=== PATIENT | male | born 1980 | race Caucasian/White ===

== ENCOUNTER 2023-09-03 09:03 | Outpatient (OUT) | payer BC, SELFPAY ==
[2023-09-03 10:26] LABS: Alanine Aminotransferase 31 U/L (16-63); Albumin Globulin Ratio 0.9; Albumin Level 3.7 g/dL (3.4-5.0); Alkaline Phosphatase 97 U/L (46-116); Anion Gap 13.4; Aspartate Amino Transferase 20 U/L (15-37); BUN Creatinine Ratio 13.6; Bilirubin Total 0.6 mg/dL (0.2-1.0); Calcium 9.4 mg/dL (8.5-10.1); Carbon Dioxide 27.3 mmol/L (21.0-32.0); Chloride 104 mmol/L (98-107); Estimated GFR (African America >60 (>=60); Estimated GFR (Non-African Ame >60 (>=60); Globulin 4.3 g/dL; Glucose 96 mg/dL (74-106); Potassium 3.7 mmol/L (3.5-5.1); Sodium 141 mmol/L (136-145)
[2023-09-04 14:07] LABS: Insulin 32.2 uIU/mL (2.6-24.9)
[2023-09-09 18:07] LABS: Free Testosterone(Direct) 6.6 pg/mL (6.8-21.5); Testosterone 139 ng/dL (264-916)
== END 2023-09-03 09:04 | disposition home or self-care (01) ==
PROVIDERS: PCP Nurse Practitioner Family; Visit Provider Nurse Practitioner Family
DX: R63.5 Abnormal weight gain (principal)
CPT/HCPCS: 36415; 80053; 82533; 83525; 84402; 84403

== ENCOUNTER 2024-02-17 14:22 | Emergency (ER) | payer BC, SELFPAY ==
[2024-02-17 14:28] VITALS: BP 143/106; PULSE 84; TEMP 36.7; O2SAT 95
--- OUTSIDE RECORDS SUMMARY | 2024-02-17 14:33 | XMS_ITS | CCD ---
Author Organization [facility] Care Team Providers Care Distribution Driver Name Role Phone DEVORAH STRICKLAND Primary Care Unavailable DR MOSHE RIOS V Consulting Unavailable WAYNE GARG Admitting Unavailable WAYNE GARG Attending Unavailable WAYNE GARG Consulting Unavailable Devorah Strickland Unavailable Princess Allen Unavailable DEVORAH STRICKLAND Primary Care Physician NOEMY STRICKLAND Primary Care Unavail able NOEMY STRICKLAND Referring Unavail Wesley Henriquez Admitting Unavaila Wesley Morrison Attending Maxwella NOEMY Todd Primary Care Unavail able NOEMY STRICKLAND Attending Unavail able NOEMY STRICKLAND Referring Unavail able MARCO A, NOEMY Cui Admitting Unavail able MARCO A, NOEMY Cui Primary Care Unavail able MD Dao Rosa Consulting Unavailable Wesley Smith Admitting Unavaila Wesley Morrison Attending Maxwella Wesley Morrison Referring Unavaila Dao Fedler Consulting Unavailable Dao Rosa Consulting Unavailable Allergies Allergy Classification Reported Allergen(s) Allergy Type Date of Onset Reaction(s) Facility (14 sources) Azithromycin Drug Allergy [facility] sones Other Medications Current Medications Medication Drug Class(es) Dates Sig (Normalized) Sig (Original) [id number] 200 actuat albuterol 0.09 mg/actuat metered dose inhaler (1 source) beta2-Adrenergic Agonist Start: 02-09-2023 take 2 puff(s) by inhalation four times daily as needed Albuterol Sulfate HFA 108 (90 Base) MCG/ACT 2 puffs Inhalation 4 times a day prn Feb, Active ALPRAZolam 0.25 mg oral tablet (6 sources) Benzodiazepine Start: 05-10-2021 Xanax 0.25 MG 1/2 to 1 By Mouth Twice a day for 15 day(s) May, Active Start: 03-23-2021 Start: 01-27-2021 Xanax 0.25 MG 1/2 to 1 By Mouth Twice a day for 15 day(s) Jan, Active amoxicillin 250 mg oral capsule (6 sources) Penicillin-class Antibacterial Start: 06-26-2023 take 250 mg by mouth three times daily Amoxicillin Active 250 MG PO Three times daily 26 11June 26, 2023 12:00am Start: 01-31-2021 take 1 tablet by amadou th every eight hours Amoxicillin 875 MG 1 tablet Orally every 8 hrs for 10 day(s) Jan, Active benzonatate 200 mg oral capsule (1 source) Non-narcotic Antitussive Start: 02-09-2023 take 1 capsule by mouth every eight hours Benzonatate 200 MG 1 capsule Orally Three times a day Feb, Active clonazePAM 0.5 mg oral tablet (12 sources) Benzodiazepine Start: 06-26-2023 Clonazepam Active MG PO June 26, 2023 12:00am Start: 05-30-2023 ClonazePAM 0.5 mg Tab Refills(s) 0 Start Date: 05/30/23 Status: Ordered Start: 05-13-2022 take 1 tablet by amadou th every twelve hours KlonoPIN 0.5 MG 1 tablet Orally twice a day for 20 day(s) May, Active Start: 02-22-2022 take 1 tablet by amadou th every twelve hours KlonoPIN 0.5 MG 1 tablet Orally twice a day for 20 day(s) Feb, Active Start: 12-07-2021 take 1 tablet by amadou th every twelve hours KlonoPIN 0.5 MG 1 tablet Orally twice a day for 20 day(s) Dec, Active Start: 10-12-2021 take 1 tablet by amadou th every twelve hours KlonoPIN 0.5 MG 1 tablet Orally twice a day for 15 day(s) Oct, Active Start: 08-13-2021 take 1 tablet by amadou th every twelve hours KlonoPIN 0.5 MG 1 tablet Orally bid for 15 day(s) Aug, Active Start: 06-13-2021 take 1 tablet by amadou th every twelve hours KlonoPIN 0.5 MG 1 tablet Orally bid for 15 day(s) Jun, Active Start: 06-09-2021 take 1 tablet by amadou th every twelve hours KlonoPIN 0.5 MG 1 tablet Orally bid for 3 days Jun, Active doxycycline hyclate 100 mg oral tablet (1 source) Tetracycline-class Drug Start: 02-09-2023 take 1 tablet by mouth every twelve hours Doxycycline Hyclate 100 MG 1 tablet Orally Twice a day for 10 day(s) Feb, Active fluticasone propionate 0.05 mg/actuat metered dose nasal spray (1 source) Corticosteroid Start: 02-09-2023 take 2 spray(s) nasal route once daily Fluticasone Propionate 50 MCG/ACT 2 sprays Nasally Once a day for 14 day(s) Feb, Active Metoprolol (17 sources) beta-Adrenergic Desiree Start: 06-26-2023 Metoprolol Succinate Active MG PO June 26, 2023 12:00am Start: 05-30-2023 metoprolol 50 mg ER Tab Refills(s) 0 Start Date: 05/30/23 Status: Ordered Start: 07-08-2020 take 1 tablet by amadou th every twenty-four hours Toprol XL 50 MG 1 tablet Orally Once a day for 90 day(s) Jul, Active pantoprazole 20 mg delayed release oral tablet (2 sources) Proton Pump Inhibitor Start: 07-01-[address] Tab Refills(s) 0 Start Date: 07/01/23 Status: Ordered QUEtiapine 25 mg oral tablet (1 source) Atypical Antipsychotic Start: 06-26-2023 Quetiap ine Active MG PO June 26, 2023 12:00am Completed/Discontinued Medications Medication Drug Class(es) Dates Sig (Normalized) Sig (Original) escitalopram 20 mg oral tablet (14 sources) Serotonin Reuptake Inhibitor Start: 05-23-2020 take 1 tablet by mouth every twenty-four hours Lexapro 20 MG 1 tablet Orally Once a day for 30 day(s) May, Not-Taking hydrOXYzine hydrochloride 10 mg oral tablet (14 sources) Antihistamine take 1 tablet by mouth three times daily as needed hydrOXYzine HCl 10 MG 1 tablet as needed Orally tid prn for 30 days Not-Taking lisinopril 20 mg oral tablet (14 sources) Angiotensin Converting Enzyme Inhibitor take 1 tablet by mouth every twenty-four hours Lisinopril 20 MG 1 tablet Orally Once a day for 90 day(s) Not-Taking Problems Active Problems Problem Classification Problem Date Documented Da te Episodic/Chronic Anxiety disorders (20 sources) Generalized anxiety disorder; Translations: [Generalized anxiety disorder] Onset: 01-27-2021 Resolved: 12-07-2021 Chronic Chronic obstructive pulmonary disease and bronchiectasis (1 source) Bronchitis, not specified as acute or chronic Episodic Essential hypertension (20 sources) Essential hypertension; Translations: [Essential (primary) hypertension] Onset: 01-27-2021 Resolved: 06-09-2021 Chronic Immunizations and screening for infectious disease (2 sources) Contact with and (suspected) exposure to other viral communicable diseases; Translations: [Contact with or exposure to other viral diseases] Onset: 01-31-2021 Resolved: 01-31-2021 Episodic Malaise and fatigue (15 sources) Fatigue; Translations: [Chronic fatigue, unspecified] Onset: 01-27-2021 Resolved: 01-27-2021 Chronic Other nutritional; endocrine; and metabolic disorders (2 sources) Obese 05-30-2023 Chronic Other upper respiratory infections (4 sources) Acute sinusitis, unspecified; Translations: [Viral upper respiratory tract infection] Episodic Otitis media and related conditions (3 sources) Otitis media, unspecified, bilateral; Translations: [Acute right otitis media] Onset: 01-31-2021 Resolved: 01-31-2021 Episodic Past or Other Problems Problem Classification Problem Date Documented Da te Episodic/Chronic Abdominal pain (3 sources) Left lower quadrant pain; Translations: [LEFT LOWER QUADRANT PAIN] Onset: 05-20-2021 Episodic Calculus of urinary tract (1 source) Calculus of kidney; Translations: [CALCULUS OF KIDNEY] Onset: 05-22-2021 Episodic Results Test Name Value Interpretation Reference Range Facility Heart and Vascular Office/Cl inic Noteon 07-24-2023 Heart and Vascular Office/Clinic Note Chief Complaint here to establish care History of Present Illness The patient presents for evaluation of elevated resting heart rate. An adult female accompanies him. The patient reports having an elevated resting heart rate and hypertension, which he takes a beta-desiree for. He also has panic disorder that elevates both his blood pressure and heart rate. He right now feels like a 6 out of 10. He always has chest discomfort that felt like a reverse hiccup. But once a year, he would have episodes of discomfort that would last 5 to 6 hours for 4 to 5 days. He experienced it again a couple of months ago when he noticed that his heart skipped a bit and stopped during the 3rd and 4th day while he was in bed trying to sleep. On the day of his appointment with his primary care physician, his symptoms stopped and did not appear again for 1 week. He got sick for a week. He recently got over COVID-19. His sustainability officer is concerned about the Ron protocol since he has high anxiety that it might make it inaccurate. There is also a possibility that he will not do the test due to anxiety and he does not follow through with caring for himself. His sustainability officer inquired if a [employer] monitor would be an option. He can walk on a treadmill but has not tried one. He has gained a lot of weight and he easily gets tired. He had an ER visit because his heart rate was 140 bpm. He once had a heart rate of 148 bpm when he had forgotten to take his beta-desiree. His mother has a cardiac history. He has a history of short run SVT. Review of Systems Constitutional: no fever, no sweats, no weakness Skin: no rash, no lesions, no bruising/petechiae ENMT: no sore throat, no congestion, no hoarseness Respiratory: no shortness of breath, no cough, no orthopnea, no wheezing Cardiovascular: no chest pain, no palpitations, no edema Gastrointestinal: no nausea, no vomiting, no diarrhea, no GI bleeding Genitourinary: no anuria/oliguria no hematuria Musculoskeletal: no back pain, no trauma Neurologic: no headache, no dizziness, no numbness, no weakness Psychiatric: no sleeping problems, no irritability, no anxiety/depression. Heme/Lymph: no bleeding tendency, no bruising tendency Allergy/Immunologic: no recurrent infections, no impaired immunity Additional ROS info: Except as noted in the above Review of Systems and in the History of Present Illness all other systems have been reviewed and are negative or noncontributory Physical Exam Vitals & Measurements HR: 90(Peripheral) BP: 140/88 SpO2: 95% HT: 71 in HT: 180 cm WT: 132.1 kg WT: 290.62 lb BMI: 40.77 General: alert, no acute distress Skin: warm, dry intact Head: atraumatic, normocephalic Neck: trachea midline, no JVD, no bruit Eye: normal conjunctiva, sclera clear ENMT: oral mucosa moist Cardiovascular: regular rate and rhythm, no murmur, normal peripheral perfusion Respiratory: lungs CTA, respirations non labored Chest wall: no deformity. Gastrointestinal: soft, non-distended, no tenderness, no guarding. Back: no tenderness, normal ROM, normal alignment. Extremities: no edema, no deformity, no trauma Neurological: oriented x 4, LOC appropriate for age, sensation equal & normal bilaterally, speech normal Psychiatric: cooperative, affect appropriate for age, normal judgement, normal psychiatric thoughts. Assessment/Plan 1. Chest pain (R07.9: Chest pain, unspecified) Neetu Willett is a male with chest discomfort, hypertension, elevated resting heart rate and a history of short run of SVT. His event monitor looks good. I suspect that what he detected were PVCs. I educated the patient regarding his heart rhythm, medication, and test options for his cardiac health concerns. They are fine to do the [employer] monitor. I encourage him to continue taking his beta-desiree. I will order an echocardiogram. 2. Obesity (E66.9: Obesity, unspecified) Diet and exercise as tolerated is recommended to promote weight loss and improve cardiovascular wellness. Follow-up The patient will follow up in a couple of months. Portions of this record may have been created with voice recognition artificial intelligence software, specifically Skigit, [employer]ork and or [employer]. Substitutions may have occurred due to the inherent limitations of voice recognition and artificial intelligence software. ATTESTATION: Documentation services were performed after patient or guardian consented to allow Number 100 to record this visit. APOLOL guest experience specialist and provider reviewed before signing. APOLLO: Phoebe January Oseo. Follow-up No qualifying data available Problem List/Past Medical History Ongoing No qualifying data Historical Anxiety HTN - Hypertension Obese Medications ClonazePAM 0.5 mg Tab metoprolol 50 mg ER Tab Pantoprazole [address] Tab Allergies No Known Allergies Social History Tobacco Never (less than 100 in lifetime) Tobacco Use:. Smokeless tobacco (more content not included)... Normal [facility] Comment on above: Result Comment: Elec tronically Signed By: Wesley Smith MD\.br\Date and Time Signed: 07/24/23 11:05 EDT\.br\Electronically Co-Signed By: Maria Eugenia Lazo\.br\Date and Time Co-Signed: 07/01/23 17:00 EST Electrocardiogram - 12 leado n 07-04-2023 Electrocardiogram - 12 lead [id number] 6#1.00TIFF [facility] Physician Orderon 07-04-2023 Physician Order [id number] 0#1.00TIFF [facility] Insurance Correspondenceon 0 07-01-2023 Insurance Correspondence [id number] 16#1.00TIFF [facility] No Panel InformationOrdered By: Luzmaria Nguyen on 06-26-2023 COVID/Influenza Antigen (POC) [facility] Quick Strep (POC) [facility] Monitor Recordon 06-24-2023 Monitor Record [id number] #1.00TIFF [facility] Event Monitoron 06-08-2023 Event Monitor 7-DAY EVENT MONITOR DATE OF SERVICE: 05/23/2023 to 05/30/2023 ORDERING PRACTITIONER: SHERRY Clarke INTERPRETING PHYSICIAN: Jos Carlos M.D. INDICATIONS: Cardiac arrhythmia. RESULTS: The predominant rhythm throughout the study was normal sinus rhythm at a minimum heart rate of 48 beats per minute and a maximum of 98 beats per minute. The patient had no arrhythmias documented. The patient had two triggered events which corresponded to normal sinus rhythm and sinus arrhythmia. The patient had no evidence of atrial fibrillation, atrial flutter, supraventricular tachycardia, ventricular tachycardia or pauses noted. CONCLUSIONS: Essentially unremarkable 7-day event monitor. Results as described above. Recommend clinical correlation or alternative mode of testing if clinically indicated. READ BY: Jos Carlos M.D. ls Dictated: 06/08/2023 [id number] Transcribed: 06/08/2023 cc:SHERRY Clarke [facility] Comment on above: Result Comment: Elec tronically Signed By: LEANN VAN, Jos Cui\.br\Date and Time Signed: 06/08/23 10:58 EST Consent for Treatmenton 05-09 Consent for Treatment [id number] #1.00TIFF [facility] Physician Orderon 04-27-2023 Physician Order [id number] #1.00TIFF [facility] Referrals Officeon 3 Referrals Office [id number] #1.00TIFF [facility] CBC AUTO DIFFon 05-20-2021 BASO # 0.0 103/ul Normal 0.0-0.1 [facility] Comment on above: Performed By: #### C BC #### [facility] [address] [place] [address] Dr. Eliu Noel Basophils/100 WBC (Bld) 0.3 % Normal 0.2-2.0 [facility] Comment on above: Performed By: #### C BC #### [facility] [address] [place] [address] Dr. Eliu Noel EO # 0.0 103/ul Normal 0.0-0.7 [facility] Comment on above: Performed By: #### C BC #### [facility] [address] [address] [address] Eliu Noel Eosinophils/100 WBC (Bld) 0.2 % Critically low 0.9-7.0 [facility] Comment on above: Performed By: #### C BC #### [facility] [address] [place] [address] Dr. Eliu Noel Erythrocyte distribution width (RBC) [Ratio] 12.8 % Normal 11.0-15.0 [facility] Comment on above: Performed By: #### C BC #### [facility] [address] [place] [address] Dr. Eliu Noel Hemoglobin (Bld) [Mass/Vol] 14.8 g/dL Normal 14.0-18.0 [facility] Comment on above: Performed By: #### C BC #### [facility] [address] [place] [address] Dr. Eliu Noel IG # 0.05 10e3/ul Critically high 0.00-0.03 [facility] Comment on above: Performed By: #### C BC #### [facility] [address] [place] [address] Dr. Eliu Noel IG % 0.4 % Normal 0.0-0.5 [facility] Comment on above: Performed By: #### C BC #### [facility] [address] [place] [address] Dr. Eliu Noel LYMPH # 2.1 103/ul Normal 1.2-3.8 [facility] Comment on above: Performed By: #### C BC #### [facility] [address] [place] [address] Dr. Eliu Noel Lymphocytes/100 WBC (Bld) 19.0 % Critically low 20.5-60.0 [facility] Comment on above: Performed By: #### C BC #### [facility] [address] [place] [address] Dr. Eliu Noel MANUAL DIFF REQ NO Normal [facility] Comment on above: Performed By: #### C BC #### [facility] [address] [place] [address] Dr. Eliu Noel MCH (RBC) [Entitic mass] 30.0 pg Normal 25.9-34.0 [facility] Comment on above: Performed By: #### C BC #### [facility] [address] [place] [address] Dr. Eliu Noel MCHC (RBC) [Mass/Vol] 33.3 g/dL Normal 29.9-35.2 [facility] Comment on above: Performed By: #### C BC #### [facility] [address] [address] [address] Eliu Noel MCV (RBC) [Entitic vol] 90.1 fL Normal 80.0-94.0 [facility] Comment on above: Performed By: #### C BC #### [facility] [address] [address] [address] Eliu Noel MONO # 0.6 103/ul Normal 0.3-0.8 [facility] Comment on above: Performed By: #### C BC #### [facility] [address] [address] [address] Eliu Noel Monocytes/100 WBC (Bld) 5.2 % Normal 1.7-12.0 [facility] Comment on above: Performed By: #### C BC #### [facility] [address] [address] [address] Eliu Noel NEUT # 8.4 103/ul Critically high 1.4-6.5 [facility] Comment on above: Performed By: #### C BC #### [facility] [address] [address] [address] Eliu Noel Neutrophils/100 WBC (Bld) 74.9 % Normal 43.0-75.0 [facility] Comment on above: Performed By: #### C BC #### [facility] [address] [address] [address] Eliu Noel Platelet mean volume (Bld) [Entitic vol] 9.3 fL Critically low 9.5-13.5 [facility] Comment on above: Performed By: #### C BC #### [facility] [address] [address] [address] Eliu Noel PLT 314 103/ul Normal 150-450 [facility] Comment on above: Performed By: #### C BC #### [facility] [address] [address] [address] Eliu Noel RBC 4.94 106/ul Normal 4.70-6.10 [facility] Comment on above: Performed By: #### C BC #### [facility] [address] [address] [address] Eliu Noel WBC 11.3 103/ul Critically high 4.0-11.0 [facility] Comment on above: Performed By: #### C BC #### [facility] [address] ABD/PELVIS WO CONon 05-20 CT ABD/PELVIS WO CON EXAMINATION: CT ABD/PELVIS WO CON, 05/20/2021 10:00 AM EST HISTORY: UNSPECIFIED ABDOMINAL PAIN , left lower quadrant pain COMPARISON: None. TECHNIQUE: CT scan of the abdomen and pelvis was performed without IV contrast. CT dose reduction technique was used, including Automated Exposure Control. FINDINGS: LUNG BASES: No visible pulmonary or pleural disease. LIVER: Diffuse hypoattenuation consistent with hepatic steatosis BILIARY: No dilatation or calcification. PANCREAS: No lesion, fluid collection, ductal dilatation, or atrophy. SPLEEN: No enlargement or focal lesion. ADRENALS: No mass or enlargement. KIDNEYS: Normal right. Mild left asymmetric hydroureter extending down to a 2 mm calcification at the left ureterovesical junction axial image 138 BOWEL/MESENTERY: No visible mass, obstruction, or bowel wall thickening. Normal appendix AORTA/VASCULAR: No aneurysm or dissection. RETROPERITONEUM: No mass or adenopathy. LYMPH NODES: No adenopathy. URINARY BLADDER: Thickened urinary bladder wall possibly related to nondistention PELVIC ORGANS: 3 cm umbilical hernia containing fat without strangulation ABDOMINAL WALL: No mass or hernia. BONES: No bony lesion or fracture. OTHER: Negative. IMPRESSION: 2 mm left ureterovesical junction calcification with mild associated hydroureter Diffuse hepatic steatosis Electronically authenticated by: MOSHE RIOS Date: 2021-05-20 10:37 Normal [facility] ER URINE PROFILEon 2 Bilirubin Ql (U) Negative Normal NEGATIVE [facility] Comment on above: Performed By: #### U MICRO, ERUR #### [facility] [address] [address] [address] Eliu Noel Clarity (U) CLEAR Normal CLEAR [facility] Comment on above: Performed By: #### U MICRO, ERUR #### [facility] [address] [address] [address] Eliu Noel Color (U) YELLOW Normal YELLOW [facility] Comment on above: Performed By: #### U MICRO, ERUR #### [facility] [address] [address] [address] Eliu LAGUNAS A micrscopic examination will be performed if indicated. Normal [facility] Comment on above: Performed By: #### U MICRO, ERUR #### [facility] [address] [address] [address] Eliu Noel Glucose Ql (U) Negative Normal NEGATIVE [facility] Comment on above: Performed By: #### U MICRO, ERUR #### [facility] [address] [place] [address] Dr. Eliu Noel Hemoglobin Ql (U) LARGE Abnormal NEGATIVE [facility] Comment on above: Performed By: #### U MICRO, ERUR #### [facility] [address] [place] [address] Dr. Eliu Noel Ketones Ql (U) Negative Normal NEGATIVE [facility] Comment on above: Performed By: #### U MICRO, ERUR #### [facility] [address] [address] [address] Eliu Noel LEUKOCYTES Negative Normal NEGATIVE [facility] Comment on above: Performed By: #### U MICRO, ERUR #### [facility] [address] [place] [address] Dr. Eliu Noel Nitrite Ql (U) Negative Normal NEGATIVE [facility] Comment on above: Performed By: #### U MICRO, ERUR #### [facility] [address] [address] [address] Eliu Noel pH (U) 5.0 [pH] Normal 5-9 [facility] Comment on above: Performed By: #### U MICRO, ERUR #### [facility] [address] [place] [address] Dr. Eliu Noel SPEC GRAVITY >=1.030 Abnormal 1.005-<=1.02 5 [facility] Comment on above: Performed By: #### U MICRO, ERUR #### [facility] [address] [place] [address] Dr. Eliu Noel UA PROTEIN Negative Normal NEGATIVE/ TRACE [facility] Comment on above: Performed By: #### U MICRO, ERUR #### [facility] [address] [place] [address] Dr. Eliu Noel UR MICRO IND INDICATED Normal [facility] Comment on above: Performed By: #### U MICRO, ERUR #### [facility] [address] [place] [address] Dr. Eliu Noel Urobilinogen Qn (U) 0.2 {Dionna'U}/dL Normal 0.2 - 1. 0 [facility] Comment on above: Performed By: #### U MICRO, ERUR #### [facility] [address] [place] [address] Dr. Eliu Noel PROF CHEM 8 (BAS METB)on Anion gap [Moles/Vol] 13.9 mmol/L Normal [facility] Comment on above: Performed By: #### B MP #### [facility] [address] [place] [address] Dr. Eliu Noel Calcium [Mass/Vol] 9.0 mg/dL Normal 8.4-10.2 [facility] Comment on above: Performed By: #### B MP #### [facility] [address] [place] [address] Dr. Eliu Noel Chloride [Moles/Vol] 101 mmol/L Normal 98-107 [facility] Comment on above: Performed By: #### B MP #### [facility] [address] [place] [address] Dr. Eliu Noel CO2 [Moles/Vol] 26.7 mmol/L Normal 22.0-30.0 [facility] Comment on above: Performed By: #### B MP #### [facility] [address] [place] [address] Dr. Eliu Noel Creatinine [Mass/Vol] 0.90 mg/dL Normal 0.66-1.25 [facility] Comment on above: Performed By: #### B MP #### [facility] [address] [address] [address] Eliu Noel EGFR-AF MAURITANIAN >60 Normal >=60 [facility] Comment on above: Performed By: #### B MP #### [facility] [address] [address] [address] Eliu Noel EGFR-NON AF MAURITANIAN >60 Normal >=60 [facility] Comment on above: Performed By: #### B MP #### [facility] [address] [address] [address] Eliu Noel Glucose [Mass/Vol] 105 mg/dL Normal 74-106 [facility] Comment on above: Performed By: #### B MP #### [facility] [address] [place] [address] Dr. Eliu Noel Potassium [Moles/Vol] 3.6 mmol/L Normal 3.4-5.0 [facility] Comment on above: Performed By: #### B MP #### [facility] [address] [address] [address] Eliu Noel Sodium [Moles/Vol] 138 mmol/L Normal 137-145 [facility] Comment on above: Performed By: #### B MP #### [facility] [address] [place] [address] Dr. Eliu Noel Urea nitrogen [Mass/Vol] 13.0 mg/dL Normal 9.0-20.0 [facility] Comment on above: Performed By: #### B MP #### [facility] [address] [address] [address] Eliu Noel Urea nitrogen/Creatinine [Mass ratio] 14.4 mg/mg Normal [facility] Comment on above: Performed By: #### B MP #### [facility] [address] [place] [address] Dr. Eliu Noel URINE MICROSCOPIC ONLYon BACTERIA NONE SEEN Normal NONE SEEN [facility] Comment on above: Performed By: #### U MICRO, ERUR #### [facility] [address] [place] [address] Dr. Eliu Noel Bacteria identified Cx Nom (U) NOT INDICATED Normal [facility] Comment on above: Performed By: #### U MICRO, ERUR #### [facility] [address] [address] [address] Eliu Noel CAST NONE SEEN Normal NONE SEEN [facility] Comment on above: Performed By: #### U MICRO, ERUR #### [facility] [address] [address] [address] Eliu Noel Crystals LM Nom (Urine sed) NONE SEEN Normal NONE SEEN [facility] Comment on above: Performed By: #### U MICRO, ERUR #### [facility] [address] [place] [address] Dr. Eliu Noel Epithelial cells LM Ql (Urine sed) RARE Normal NONE SEEN /RARE [facility] Comment on above: Performed By: #### U MICRO, ERUR #### [facility] [address] [place] [address] Dr. Eliu Noel MUCOUS TRACE Abnormal NONE SEEN [facility] Comment on above: Performed By: #### U MICRO, ERUR #### [facility] [address] [address] [address] Eliu Noel RBC 5-10 Abnormal 0-2 [facility] Comment on above: Performed By: #### U MICRO, ERUR #### [facility] [address] [place] [address] Dr. Eliu Noel WBC NONE SEEN Normal NONE SEEN [facility] Comment on above: Performed By: #### U MICRO, ERUR #### [facility] [address] [place] [address] Dr. Eliu Noel COVID Quick Testingon 2020 Result Negative [facility] Other Vital Signs Date Time Vital Sign Value Performing Clinician Lilia baxter 07-01-2023 13:00-0500 Diastolic blood pressure 88 mm[Hg] Wesley Smith [facility] 07-01-2023 13:00-0500 Heart rate 90 /min Wesley Smith [facility] 07-01-2023 13:00-0500 SaO2% (BldA) [Mass fraction] 95 % Wesley Smith [facility] 07-01-2023 13:00-0500 Systolic blood pressure 140 mm[Hg] Wesley Smith [facility] 06-26-2023 11:05-0500 Body height 179.07 cm [facility] 06-26-2023 11:05-0500 Body mass index (BMI) [Ratio] 41 kg/m2 [facility] 06-26-2023 11:05-0500 Body temperature 97.6 [degF] [facility] 06-26-2023 11:05-0500 Body weight 131.54 kg [facility] 06-26-2023 11:05-0500 Heart rate 85 /min [facility] 06-26-2023 11:05-0500 Respiratory rate 18 /min [facility] 06-26-2023 11:05-0500 SaO2% (BldA) [Mass fraction] 97 % [facility] 02-09-2023 12:10-0400 Body height 179.07 cm Princess Tiffany Other [facility] [employer] Other 02-09-2023 12:10-0400 Body mass index (BMI) [Ratio] 41.92 kg/m2 Princess Tiffany Other [facility] [employer] Other 02-09-2023 12:10-0400 Body temperature 100.5 [degF] Princess Tiffany Other [facility] Other 02-09-2023 12:10-0400 Body weight 134.45 kg Princess Tiffany Other [facility] [employer] Other 02-09-2023 12:10-0400 Diastolic blood pressure 86 mm[Hg] Princess Tiffany Other [facility] Other 02-09-2023 12:10-0400 Respiratory rate 18 /min Princess Allen Other [facility] Other 02-09-2023 12:10-0400 SaO2% (BldA) [Mass fraction] 98 % Princess Allen Other [facility] Other 02-09-2023 12:10-0400 Systolic blood pressure 144 mm[Hg] Princess Allen Other [facility] Other 06-09-2021 12:00-0500 Body height 179.07 cm Devorah Marco A Other [facility] Other 06-09-2021 12:00-0500 Body mass index (BMI) [Ratio] 39.6 kg/m2 Devorah Marco A Other [facility] Other 06-09-2021 12:00-0500 Body temperature 97.8 [degF] Devorah Marco A Other [facility] Other 06-09-2021 12:00-0500 Body weight 127.01 kg Devorah Marco A Other [facility] Other 06-09-2021 12:00-0500 Diastolic blood pressure 80 mm[Hg] Devroah Marco A Other [facility] Other 06-09-2021 12:00-0500 Respiratory rate 18 /min Devorah Strickland Other [facility] Other 06-09-2021 12:00-0500 SaO2% (BldA) [Mass fraction] 99 % Devorah Strickland Other [facility] Other 06-09-2021 12:00-0500 Systolic blood pressure 134 mm[Hg] Devorah Strickland Other [facility] Other 01-31-2021 14:15-0400 Body height 179.07 cm Devorah Strickland Other [facility] Other 01-31-2021 14:15-0400 Body mass index (BMI) [Ratio] 41.02 kg/m2 Devorah Strickland Other [facility] Other 01-31-2021 14:15-0400 Body weight 131.54 kg Devorah Strickland Other [facility] Other 01-27-2021 14:00-0400 Body height 179.07 cm Devorah Strickland Other [facility] Other 01-27-2021 14:00-0400 Body mass index (BMI) [Ratio] 40.31 kg/m2 Devorah Strickland Other [facility] Other 01-27-2021 14:00-0400 Body temperature 97.5 [degF] Devorah Strickland Other [facility] Other 01-27-2021 14:00-0400 Body weight 129.28 kg Devorah Strickland Other [facility] Other 01-27-2021 14:00-0400 Diastolic blood pressure 96 mm[Hg] Devorah Townsendault Other [facility] Other 01-27-2021 14:00-0400 Respiratory rate 18 /min Devorah Strickland Other [facility] Other 01-27-2021 14:00-0400 SaO2% (BldA) [Mass fraction] 98 % Devorah Strickland Other [facility] Other 01-27-2021 14:00-0400 Systolic blood pressure 137 mm[Hg] Devorah Strickland Other [facility] Other Encounters Encounter Date Encounter Type Care Provider Facility Start: 11-17-2023 End: 11-17-2023 ambulatory NOEMY STRICKLAND [place] Start: 11-17-2023 End: 11-17-2023 Patient encounter procedure Wesley Smith [facility] Start: 07-01-2023 End: 07-01-2023 ambulatory NOEMY STRICKLAND [place] Start: 07-01-2023 End: 07-01-2023 Patient encounter procedure Wesley Smith [facility] Start: 06-26-2023 End: 06-26-[address] [facility] Work Phone: Start: 06-26-2023 End: 06-26-2023 Patient encounter procedure [facility] Work Phone: Start: 05-23-2023 End: 05-23-2023 ambulatory NOEMY STRICKLAND [place] Start: 05-23-2023 End: 05-23-2023 Patient encounter procedure DEVORAH STRICKLAND [facility] Start: 02-09-2023 End: 02-09-2023 ambulatory Princess Allen Other [facility] Other Start: 02-09-2023 Office outpatient visit 15 minutes Princess Whitemond [facility] Start: 05-13-2022 End: 05-13-2022 ambulatory Devorah Marco A Other [facility] Other Start: 05-13-2022 Telephone encounter Devorah Breaul t [facility] Start: 05-03-2022 End: 05-03-2022 ambulatory Devorah Marco A Other [facility] Other Start: 05-03-2022 Telephone encounter Devorah Breaul t [facility] Start: 02-21-2022 End: 02-21-2022 ambulatory Devorah Marco A Other [facility] Other Start: 02-21-2022 Telephone encounter Devorah Breaul t [facility] Start: 12-07-2021 End: 12-07-2021 ambulatory Devorah Marco A Other [facility] Other Start: 12-07-2021 Telephone encounter Devorah Breaul t [facility] Start: 10-11-2021 End: 10-11-2021 ambulatory Devorah Marco A Other [facility] Other Start: 10-11-2021 Telephone encounter Devorah Breaul t [facility] Start: 08-12-2021 End: 08-12-2021 ambulatory Devorah Marco A Other [facility] Other Start: 08-12-2021 Telephone encounter Devorah Breaul t [facility] Start: 06-13-2021 End: 06-13-2021 ambulatory Devorah Marco A Other [facility] Other Start: 06-13-2021 Telephone encounter Devorah Garcial t [facility] Start: 06-09-2021 End: 06-09-2021 ambulatory Devorah Strickland Other [facility] Other Start: 06-09-2021 Office outpatient visit 15 minutes Devorah Strickland [facility] Start: 06-05-2021 End: 06-05-2021 ambulatory Devorah Strickland Other [facility] Other Start: 06-05-2021 Telephone encounter Devorah Garcial t [facility] Start: 05-20-2021 End: 05-20-2021 ambulatory DEVORAH STRICKLAND Facility: Start: 05-08-2021 End: 05-08-2021 ambulatory Devorah Strickland Other [facility] Other Start: 05-08-2021 Telephone encounter Devorah Garcial t [facility] Start: 03-21-2021 End: 03-21-2021 ambulatory Devorah Strickland Other [facility] Other Start: 03-21-2021 Telephone encounter Devorahglenny Garcial t [facility] Start: 01-31-2021 Office outpatient visit 15 minutes Devorah Strickland [facility] Start: 01-27-2021 Office outpatient visit 15 minutes Devorah Strickland [facility] Procedures Date Procedure Procedure Detail Performing Clinician Start: 06-26-2023 COVID/Influenza Antigen (POC) Start: 06-26-2023 Quick Strep (POC) Payers Date Payer Category Payer Unknown [id number] 1980 Unknown [id number] 1980 Unknown [id number] 1979 Unknown [id number] 1959 Unknown [id number] Self-pay Self Pay [id number] Unknown Regular Insurance [id number] Social History Date Type Detail Facility Unknown if ever smoked [facility] Other Sex Assigned At [facility] Tobacco smoking status No Smoking Status Entered [facility] Start: 06-26-2023 Tobacco smoking status NHIS Ex-smoker (finding) [facility] Start: 1980 Sex Assigned At [facility] Start: 07-01-2023 Tobacco smoking status Never smoked tobacco (finding) [facility] Tobacco smoking status Smokeless tobacco user within last 30 days [facility] Functional Status Date Assessment Result Facility 07-01-2023 Functional Status N/A [facility] Clinical Notes 01-27-2021 to 11-18-2023 Radiology Note Date & Type Note Facility 11-18-2023 Note Echocardiology Procedure Exam Date/Time Accession # Ordering Dr. Lemus Transthoracic 11/17/2023 13:58 EDT [id number] Sarah VAN, Wesley Hernandez CPT code [id number] Reason for Exam (Echo Transthoracic Complete) R07.9;Chest pain Report [facility] [address] [place] [address] Adult Echocardiogram Report Name: NEETU WILLETT Study Date: 11/17/2023 01:06 PM BP: 140/94 mmHg Patient Location: [facility] HR: 70 : 1980 Gender: Male Height: 71 in Age: 43 yrs Ethnicity: T Weight: 295 lb Reason For Study: Chest pain BSA: 2.5 m2 History: HTN,Obesity,PVC's Ordering Physician: Sarah^Wesley^D. Referring Physician: Wesley Smith Performed By: Kirstin Sandra RDCS Interpretation Summary Mild left ventricular hypertrophy. Left ventricular systolic function is normal. Ejection Fraction = 60-65%. Left Ventricular filling pattern is abnormal for age. No obvious regional wall motion abnormalities noted No significant valvular disease. Procedure A complete two-dimensional transthoracic echocardiogram was performed (2D, M-mode, spectral and color flow Doppler). Left Ventricle The left ventricle is normal in size. mild left ventricular hypertrophy. Left ventricular systolic function is normal. Ejection Fraction = 60-65%. No obvious regional wall motion abnormalities noted. Left Ventricular filling pattern is abnormal for age. Left Atrium The left atrial size is normal. There is no atrial septal defect. Right Atrium Right atrial size is normal. Echocardiology Report Right Ventricle The right ventricular systolic function is normal. The right ventricle is normal size. Aortic Valve The trileaflet aortic valve opening is normal. No aortic regurgitation. There is no aortic stenosis. Mitral Valve Mitral valve structure is normal. There is Trace mitral regurgitation. No mitral valve stenosis. Tricuspid Valve Structurally normal tricuspid valve. There is trace tricuspid regurgitation. No evidence of tricuspid stenosis. Pulmonic Valve The pulmonic valve is normal. No evidence of stenosis. There is no pulmonic valve regurgitation. Arteries The aortic root is normal in size. Normal ascending aorta. Effusion There is no pericardial effusion. MMode/2D Measurements & Calculations RVDd: 3.1 cm LVIDd: 5.6 cm FS: 32.0 % Ao root diam: 3.1 cm IVSd: 1.2 cm LVIDs: 3.8 cm EDV(Teich): 155.6 ml Ao root area: 7.4 cm2 LVPWd: 0.89 cm ESV(Teich): 63.0 ml LA dimension: 3.6 cm EF(Teich): 59.5 % asc Aorta Diam: 3.5 cm LVLd ap4: 9.6 cm EDV(MOD-sp2): 104.0 ml SV(MOD-sp4): 93.5 ml EDV(MOD-sp4): 139.0 ml ESV(MOD-sp2): 40.4 ml LVLs ap4: 8.0 cm EF(MOD-sp2): 61.2 % ESV(MOD-sp4): 45.5 ml EF(MOD-sp4): 67.3 % TAPSE: 2.6 cm IVC Diam: 1.3 cm RVIDd/LVIDd: 0.56 EF (MOD-bp): 64.3 % LA Vol Index: 13.4 ml/m2 Doppler Measurements & Calculations MV E max jeevan: 59.1 cm/sec MV dec time: 0.28 sec Ao V2 max: 122.6 cm/sec LV V1 max P.2 mmHg MV A max jeevan: 70.8 cm/sec Ao max P.0 mmHg LV V1 max: 102.8 cm/sec MV E/A: 0.83 Lat Peak E' Jeevan: 8.8 cm/sec E/E' Lat: 6.7 Med Peak E' Jeevan: 6.7 cm/sec E/E' Med: 8.8 TR max jeevan: 225.9 cm/sec RAP systole: 3.0 mmHg AV VR: 0.84 TR max P.4 mmHg Echocardiology Report RVSP(TR): 23.4 mmHg FINAL REPORT Dictated: 11/17/2023 1:06 pm Dao Rosa MD Signed (Electronic Signature): 11/18/2023 10:30 am Signed by: Dao Rosa MD Transcribed by: CATHY Technologist: MARTHA [facility] 07-01-2023 Evaluation + Plan note Future Scheduled TestsECG Stress Exercise 07/01/23 [facility] 02-09-2023 Evaluation note Encounter Date Diagnosis Assessment Notes Feb, Bronchitis (ICD-10 - J40) Acute bronchitis material was printed Drink plenty fluids, get plenty of rest. Take the doxycycline as prescribed until gone. Use the fluticasone nasal spray as prescribed until your symptoms improved. Use the albuterol inhaler as prescribed as needed for cough or shortness of breath. Take the benzonatate capsules as prescribed as needed for cough. Take Tylenol or Motrin as needed for aches pains or fevers. Off work today and tomorrow. Follow-up with your family physician if no improvement in 2 to 3 days Feb, Acute sinusitis, recurrence not specified, unspecified location (ICD-10 - J01.90) [facility] Other 01-05-2023 Evaluation note* Encounter Date Diagnosis Assessment Notes Treatment Notes Treatment Clinical Notes May, GIL (generalized anxiety disorder) (ICD-10 - F41.1) [facility] Other 12-26-2022 Evaluation note* Encounter Date Diagnosis Assessment Notes Treatment Notes Treatment Clinical Notes Apr, Essential hypertension (ICD-10 - I10) [facility] Other 10-16-2022 Evaluation note* Encounter Date Diagnosis Assessment Notes Treatment Notes Treatment Clinical Notes Feb, GIL (generalized anxiety disorder) (ICD-10 - F41.1) [facility] Other 08-01-2022 Evaluation note* Encounter Date Diagnosis Assessment Notes Treatment Notes Treatment Clinical Notes Dec, GIL (generalized anxiety disorder) (ICD-10 - F41.1) [facility] Other 06-05-2022 Evaluation note* Encounter Date Diagnosis Assessment Notes Treatment Notes Treatment Clinical Notes Oct, GIL (generalized anxiety disorder) (ICD-10 - F41.1) [facility] Other 04-06-2022 Evaluation note* Encounter Date Diagnosis Assessment Notes Treatment Notes Treatment Clinical Notes Aug, GIL (generalized anxiety disorder) (ICD-10 - F41.1) [facility] Other 02-05-2022 Evaluation note* Encounter Date Diagnosis Assessment Notes Treatment Notes Treatment Clinical Notes Jun, GIL (generalized anxiety disorder) (ICD-10 - F41.1) [facility] Other 02-01-2022 Evaluation note* Encounter Date Diagnosis Assessment Notes Treatment Notes Treatment Clinical Notes Jun, GIL (generalized anxiety disorder) (ICD-10 - F41.1) Will try this medication since it has a longer shelf life. He can call office and let me know if they work and I will call in more quantitiy Jun, Essential hypertension (ICD-10 - I10) [facility] Other 12-31-2021 Evaluation note* Encounter Date Diagnosis Assessment Notes Treatment Notes Treatment Clinical Notes Apr, GIL (generalized anxiety disorder) (ICD-10 - F41.1) Apr, Essential hypertension (ICD-10 - I10) [facility] Other 09-25-2021 Evaluation note* Encounter Date Diagnosis Assessment Notes Treatment Notes Treatment Clinical Notes Jan, Contact with and (suspected) exposure to other viral communicable diseases (ICD-10 - Z20.828) Today test was performed in office. Results are currently negative. That does not mean that you will not develop COVID or do not currently have a low viral count of COVID. The rapid test works best if symptoms have been over 72 hours and the results can vary if you are asymptomatic There is a higher chance of false negative results to occur if testing is performed too soon. It is recommended that even if results are negative and you have been exposed to someone that has COVID that you follow current CDC recommendations. These can be found at CDC.GOV. Follow up with primary care provider if symptoms persist or do not improve Jan, Bilateral acute otitis media (ICD-10 - H66.93) Jan, Other Additional time spent conducting pre-visit phone call, screening for symptoms, instructions on social distancing, application and removal of PPE, and cleaning of examination room, equipment and supplies was preformed. Patient education given for testing methodology and results. Patient care instructions given in writting by [facility] At Home document. [facility] Other 09-21-2021 Evaluation note* Encounter Date Diagnosis Assessment Notes Treatment Notes Treatment Clinical Notes Jan, GIL (generalized anxiety disorder) (ICD-10 - F41.1) COntinue to take medications as prescribed. OARRS shows compliance Jan, Essential hypertension (ICD-10 - I10) Jan, Chronic fatigue (ICD-10 - R53.82) Bloodwork reprinted and patient is planing on going to lab to get it completed at this time. [facility] Other Evaluation + Plan note Future Appointments Appointment Date:06/01/2023 02:30:00 PM Scheduled Provider:Sarah VAN, Wesley Hernandez [facility] Future Appointments Appointment Date:09/08/2023 03:15:00 PM Scheduled Provider:Sarah VAN, Wesley Hernandez Location:.Cardiology Clinic Appointment Type:Cardiology Follow Up ([place]) Future Scheduled Tests Radiology* Echo Transthoracic Complete 07/01/23 * ECG Stress Exercise 07/01/23 [facility] Other Evaluation noteNo InformationColumbus sones Other Evaluation note* Diagnosis Onset Date Resolution Status Acute right otitis media acu te Viral URI acute [facility] Work Phone: [facility] general Narrative - Reported* Type Description Date Medical History Anxiety Medical History Hypertension Hospitalization History No Hospitalization histo [email or web address] Other History general Narrative - ReportedColumbus sones Other [facility] general Narrative - Reported* Type Description Date Medical History Anxiety Medical History Hypertension Surgical History kidney stone Hospitalization History No know Hospitalization history [facility] Other [facility] general Narrative - Reported* Type Description Date Medical History Anxiety Medical History Hypertension Surgical History kidney stone Hospitalization History No Hospitalization histo [email or web address] Other Hospital course Narrative No data available for this section [facility] No data available for this section [facility] No data available for this section [facility] Summary Purpose Family History No Family History Records Found Relationship Condition Age at Onset Recorded Date/T dianne Not Specified Heart disease Unknown Advance Directives No Advanced Directives Records Found Advance Directive Response Recorded Date/ Time Advance Directives No June 10:49am Chief Complaint and Reason for Visit Chief Complaint Sore throat Reason for Visit Acute right otitis m edia Viral URI Additional Source Comments (unrecognized sect ion and content) No Status Records FoundNo Status Records Found INFORMATION SOURCE (unrecogn ized section and content) DATE CREATED AUTHOR 09/09/2021 [facility] DATE CREATED AUTHOR AUTHOR'S ORGANIZ ATION 11/23/2023 [facility] REASON FOR VISIT (unrecogniz ed section and content) FOLLOW UP GIL, DISCUSS MEDIC ATION, Gurvinder Anxiety#18 ROCA MINIVAN, RUNNY NOSE, BOTH EARS PLUGGED, CHILLS X3 DAYS, COVID Provider VisitNo InformationNo InformationNo InformationNo InformationMEDICATION REFILLS, Gurvinder AnxietyNo InformationNo InformationNo InformationrefillsNo InformationrxSORE THROAT, COUGH, FATIGUE, BODY ACHES, CHILLS Patient Care team informatio n (unrecognized section and content) Team Status: Active Member Role Status Dates SHERRY Clarke Primary Care Provider Active Team Status: Inactive Member Role Status Dates SHERRY Clarke Primary Care Provider Active Start: June 26, 2023 End: June 26, 2023 Luzmaria Nguyen APRN Attending Provider Active S tart: June 26, 2023 End: June 26, 2023 Goals (unrecognized section and content) Goals may be documented in a n alternate section FOR RECORDS PERTAINING TO PATIENTS WHO ARE OR HAVE BEEN ENROLLED IN A CHEMICAL DEPENDENCY/SUBSTANCEABUSE PROGRAM, SOME INFORMATION MAY BE OMITTED. This clinical summary was aggregated from multiple sources. Caution should be exercised in using it in the provision of clinical care. This summary normalizes information from multiple sources, and as a consequence, information in this document may materially change the coding, format and clinical context of patient data. In addition, data may be omitted in some cases. CLINICAL DECISIONS SHOULD BE BASED ON THE PRIMARY CLINICAL RECORDS. [facility]. provides no warranty or guarantee of the accuracy or completeness of information in this document.
--- NOTE | 2024-02-17 14:45 | ED.SKABFB1 ---
HPI - Skin/Abscess/Foreign Bdy General Chief complaint: Skin/Abscess/Foreign Body Stated complaint: LACERATION Time Seen by Provider: 02/17/24 14:25 Source: patient Mode of arrival: walk-in History of Present Illness HPI narrative: 43-year-old male presents to the ER for evaluation of laceration to the right thumb. Patient was using a kitchen knife to cut a blind on a window when it slipped striking his right thumb. Bleeding controlled with direct pressure laceration 3 cm semicircular around the thumb at the distal phalanx just distal to the DIP joint. Patient reports intact sensation to the distal tip. He is unsure of his last tetanus. 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 Patient reports feeling near syncopal after looking at the wound and covering it, he was initially diaphoretic with nausea and abdominal pain, and those symptoms quickly subsided upon lying supine. He has no additional complaints at this time other than burning sensation to the laceration of his right thumb. MD complaint: Reports laceration Onset (ago): minute(s) Tetanus up to date: no Location: Reports R hand (right thumb) Severity: mild Quality: Reports burning Related Data Previous Rx's ?Medication ?Instructions ?Recorded cephalexin 500 mg capsule 500 mg PO TID 5 days #15 caps 02/17/24 ibuprofen 600 mg tablet 600 mg PO TID PRN pain #30 tabs 02/17/24 Allergies Allergy/AdvReac Type Severity Reaction Status Date / Time No Known Drug Allergies Allergy Verified 02/17/24 14:32 Review of Systems ROS Constitutional Denies: fever or chills Cardiovascular Denies: chest pain or palpitations Gastrointestinal Reports: nausea Genitourinary Denies: painful urination Musculoskeletal Denies: back pain or neck pain Integumentary/Breast Denies: rash Neurological Denies: headache Exam Narrative Exam Narrative: Nurse's notes and vital signs reviewed. Patient is not hypoxic. General: The patient appears well and in no apparent distress. Patient is resting comfortably on cart. Skin: Warm, dry, no pallor noted. 3 cm linear semicircular laceration distal phalanx of thumb ulnar aspect, no nail involvement. Gross sensation intact to the distal phalanx, decreased sensation to pinprick and light touch distal to the laceration. Head: Normocephalic, atraumatic Eye: Normal conjunctiva Respiratory: Patient is in no distress Musculoskeletal: The right hand and wrist shows no obvious deformity. There was mild swelling noted at distal thumb, compartments soft. Flexion and extension intact at IP joint. . The patient had full rom despite pain The patient had tenderness noted to laceration ulnar aspect distal phalanx . The patient had no tenderness in the anatomical snuff box. The patient had no pain with axial loading of the thumb. Pulses are intact at brachial and radial 2+. There was no deficit at the elbow or shoulder. The patient has normal capillary refill to all distal digits. The patient has no evidence of cyanosis or mottling. The patient is able to flex and extend all digits without difficulty. Neurological: A&O x4, normal sensory, normal motor, suspect nerve injury given laceration location and reported sensation distal to laceration. radial aspect sensation within normal limits. Psychiatric: Cooperative Constitutional Vital Signs, click to edit/add: Last Vital Signs Temp 98.0 F 02/17/24 14:28 Pulse 84 02/17/24 14:28 Resp 22 H 02/17/24 14:28 BP 143/106 H 02/17/24 14:28 Pulse Ox 95 02/17/24 14:28 O2 Del Method Room Air 02/17/24 14:28 Course Vital Signs Vital signs: Vital Signs Temperature 98.0 F 02/17/24 14:28 Pulse Rate 84 02/17/24 14:28 Respiratory Rate 22 H 02/17/24 14:28 Blood Pressure 143/106 H 02/17/24 14:28 Pulse Oximetry 95 02/17/24 14:28 Oxygen Delivery Method Room Air 02/17/24 14:28 Temperature 98.0 F 02/17/24 14:28 Pulse Rate 84 02/17/24 14:28 Respiratory Rate 22 H 02/17/24 14:28 Blood Pressure 143/106 H 02/17/24 14:28 Pulse Oximetry 95 02/17/24 14:28 Oxygen Delivery Method Room Air 02/17/24 14:28 MDM - Skin/Abscess/Foreign Bdy MDM Narrative Medical decision making narrative: Tetanus updated, patient had a classic vasovagal near syncopal episode that resolved quickly upon lying supine. He denies any chest pain or shortness of breath. Laceration irrigated cleansed and repaired, discussed optimal wound healing. Performed with concern of . No evidence of tendon complication with flexion and extension intact. Appointment with PCP in 2 to 3 days for wound recheck. Briefly discussed in layman's terms possible nerve injury given location of laceration and change in symptoms. Possibility of nerve regeneration or if needed follow-up to hand specialist. Patient verbally excepting. will rx short course of keflex given length and depth of wound. The patient is to followup with primary care physician in next 2-3 days for wound recheck and suture removal in likely 10 days or to return to the emergency department should any of the signs or symptoms worsen or new symptoms develop. Patient had questions answered. The patient agrees with the following Diagnosis and Treatment plan and the patient will be discharged home. No heavy gripping with thumb. SUPERVISED APC VISIT, PHYSICIAN ATTESTATION: Based on the medical record the care appears appropriate. ? Imaging Data 3 view right thumb: Attestation: I personally reviewed and interpreted this imaging study as follows: My impression: Three-view right thumb, no definitive bony involvement, soft tissue laceration noted consistent with injury. Discharge Plan Discharge Chief Complaint: Skin/Abscess/Foreign Body Clinical Impression: Laceration of right thumb Patient Disposition: Home, Self-Care Time of Disposition Decision: 15:34 Condition: Good Prescriptions / Home Meds: New ibuprofen 600 mg tablet 600 mg PO TID PRN (Reason: pain) Qty: 30 0RF cephalexin 500 mg capsule 500 mg PO TID 5 Days Qty: 15 0RF Print Language: Northern Irish Instructions: Laceration (ED) Additional Instructions: Recommend wound recheck in 2-3 days. Suture removal in 10 day. Do not submerge wound. Elevate and ice this evening. No heavy lifting. Referrals: MITCHELL STRICKLAND [Primary Care Provider] - As soon as possible Mariano Edge MD [Physician] - As needed Procedures ED Laceration Laceration Laceration 1: Additional comments: Laceration repair: Done under sterile conditions. The use of Betadine was used to prep and clean the area. Local injection with lidocaine 1% was used, approximately 2 cc. The wound was irrigated copiously with normal saline. The wound was explored there was no evidence of foreign material. The laceration was approximated with 4-0 nylon. 7 simple interrupted sutures were placed. Patient tolerated the procedure well. The patient was neurovascularly intact post. the patient had bacitracin applied to the laceration and a dry sterile dressing was place. The patient will need to follow-up in the next 10 days for removal. Gross sensation intact distal to wound before anesthesia, but fine touch was blunted.
--- NOTE | 2024-02-17 15:20 | XR_ITS ---
The [address] [address] Patient Name: NEETU VIRAMONTES MRN: [id number] date: 1980 Sex: M Assigned Patient Location: ER Current Patient Location: ED.MAIN Accession/Order Number: [id number] Exam Date: 02/17/2024 15:28 Report Date: 02/17/2024 15:58 At the request of: MELITON MUHAMMAD Procedure: XR finger RT min 2V EXAM: XR finger RT min 2V HISTORY: laceration right thumb Distal phalanx COMPARISON: None. TECHNIQUE: PA, oblique, lateral x-ray right thumb. FINDINGS: No bony or soft tissue abnormality. For fracture. No foreign body. Normal-appearing joint XR/XR finger RT min 2V IMPRESSION: Negative for fracture or soft tissue abnormality. Electronically authenticated by: MARIUSZ MURILLO Date: 02/17/2024 15:58
[2024-02-17] MEDS: IBUPROFEN 600 MG TABLET PO (15:38)
[2024-02-17] MEDS: LIDOCAINE HCL 1% 100 MG/10 ML MDV INJ (15:38)
[2024-02-17] MEDS: BACITRACIN 0.9 GM PACKET 1 PACKET TOPICAL (15:38)
[2024-02-17] MEDS: ADACEL DIPH,PERTUSS(ACELL),TET VAC/PF 0.5 ML ADULT SYRINGE IM (15:39)
== END 2024-02-17 15:46 | disposition home or self-care (01) ==
PROVIDERS: Emergency Provider Student in an Organized Health Care Education/Training Program; PCP Nurse Practitioner Family
DX: S61.011A Laceration without foreign body of right thumb without damage to nail, initial encounter (principal); Z23 Encounter for immunization; W26.0XXA Contact with knife, initial encounter
CPT/HCPCS: 12002; 73140; 90471; 90715; 99283